=== PATIENT | female | born 1955 | race Caucasian/White ===

== ENCOUNTER 2017-01-16 08:54 | Inpatient (IN) | payer OTHER ==
[~2017-01-16] VITALS: Ht 165.1 cm; Wt 89.7 kg
[2017-01-16 09:23] LABS: EOSINOPHIL (%) 0.5 % (0-5); EOSINOPHIL COUNT 0.1 K/uL (0-0.3); HEMATOCRIT 38.5 % (36.0-46.0); IMMATURE GRANULOCYTE (%) 0.3 % (0.0-0.7); IMMATURE GRANULOCYTE COUNT 0.3 K/uL; LYMPHOCYTE COUNT 1.9 K/uL (1.0-2.8); MCH 33.7 PG (29.0-34.0); MCHC 35.1 G/DL (30.0-36.0); MEAN PLAT.VOLUME 8.9 uM^3 (9.5-12.4); MONOCYTE (%) 7.4 % (3-12); MONOCYTE COUNT 0.7 K/uL (0-0.8); NEUTROPHIL COUNT 6.7 K/uL (1.8-6.4); PLATELET COUNT 271 K/uL (156-360); RBC DIS.WIDTH-CV 11.8 % (11.8-14.6); RBC DIS.WIDTH-SD 40.1 % (39-53); RED BLOOD COUNT 4.01 M/uL (3.80-5.20); WHITE BLOOD COUNT 9.4 K/uL (4.1-10.2)
[2017-01-16 09:35] LABS: CHLORIDE 95 mEq/L (99-109); D-DIMER ELISA 0.97 mg/L FEU (< 0.57); INTER. NORMALIZED RATIO 1.2; POTASSIUM 5.3 mEq/L (3.7-5.4); PROTHROMBIN TIME 12.2 (9.2-11.2); PTT 29.9 (25-32); SODIUM 126 mEq/L (136-147)
[2017-01-16 09:37] LABS: GLUCOSE 116 mg/dL (70-99)
[2017-01-16 09:38] LABS: ANION GAP 11 MEQ/L (2-14)
[2017-01-16 09:41] LABS: GFR ESTIMATE (CALCULATED) > 59 mL/min/; UREA NITROGEN (BUN) 9 mg/dL (9-23)
[2017-01-16 09:44] LABS: TROP-I INTERPRETATION NEGATIVE; TROPONIN-I < 0.01 ng/mL (0.0-0.30)
[2017-01-16 12:08] LABS: ADD MIUA? NO; BILIRUBIN NEGATIVE; BLOOD NEGATIVE; COLOR YELLOW ((YELLOW)); GLUCOSE (STRIP) NEGATIVE; KETONES NEGATIVE; LEUKOCYTES NEGATIVE; NITRITE NEGATIVE; PROTEIN (STRIP) 30; SPECIFIC GRAVITY 1.019 (1.000-1.030); UCUL ADDED? NO; UROBILINOGEN 0.2 MG/DL (0.2-1.0)
[2017-01-16] MEDS ORDERED: ALPRAZOLAM0.5 MG PO (13:54)
[2017-01-16] MEDS ORDERED: METAXALONE800 MG PO (13:54)
[2017-01-16] MEDS ORDERED: LABETALOL HCL200 MG PO (13:55)
[2017-01-16] MEDS ORDERED: LISINOPRIL20 MG PO (13:55)
[2017-01-16] MEDS ORDERED: LEXAPRO10 MG PO (13:55)
[2017-01-16] MEDS ORDERED: EXCEDRIN MIGRA1 EAC3 PO (13:57)
[2017-01-16 18:03] VITALS: BP 151/76
[2017-01-16 20:08] VITALS: BP 180/94
[2017-01-16 23:14] VITALS: BP 160/88
[2017-01-17] VITALS (9 sets, daily range): BP systolic 145–184; BP diastolic 78–92
[2017-01-17 06:43] LABS: ANION GAP 8 MEQ/L (2-14); CHLORIDE 96 MEQ/L (99-109); GFR ESTIMATE (CALCULATED) > 59 mL/min/; GLUCOSE 97 mg/dL (70-99); SAMPLE HEMOLYSIS CHECK 0; SAMPLE ICTERIC CHECK 0; SAMPLE LIPEMIA CHECK 0; SODIUM 129 MEQ/L (136-147); UREA NITROGEN (BUN) 9 mg/dL (9-23)
[2017-01-17 06:47] LABS: POTASSIUM 4.2 MEQ/L (3.7-5.4)
[2017-01-17 07:28] LABS: INTERNAL CONTROL VALID? YES
[2017-01-18] VITALS (8 sets, daily range): BP systolic 150–209; BP diastolic 78–102
[2017-01-18 08:10] LABS: EOSINOPHIL (%) 0.9 % (0-5); EOSINOPHIL COUNT 0.1 K/uL (0-0.3); HEMATOCRIT 41.6 % (36.0-46.0); LYMPHOCYTE COUNT 2.5 K/uL (1.0-2.8); MCH 32.5 PG (29.0-34.0); MCHC 33.9 G/DL (30.0-36.0); MCV 95.9 FL (83-99); MEAN PLAT.VOLUME 9.3 uM^3 (9.5-12.4); MONOCYTE (%) 12.5 % (3-12); MONOCYTE COUNT 0.7 K/uL (0-0.8); NEUTROPHIL (%) 43.9 % (45-76); NEUTROPHIL COUNT 2.6 K/uL (1.8-6.4); PLATELET COUNT 212 K/uL (156-360); RBC DIS.WIDTH-SD 41.9 % (39-53); RED BLOOD COUNT 4.34 M/uL (3.80-5.20); WHITE BLOOD COUNT 5.9 K/uL (4.1-10.2)
[2017-01-18 08:35] LABS: ALKALINE PHOSPHATASE 68 IU/L (3-129); ANION GAP 13 MEQ/L (2-14); CHLORIDE 93 MEQ/L (99-109); GFR ESTIMATE (CALCULATED) > 59 mL/min/; GLUCOSE 111 mg/dL (70-99); POTASSIUM 4.1 MEQ/L (3.7-5.4); SAMPLE HEMOLYSIS CHECK 0; SAMPLE ICTERIC CHECK 0; SAMPLE LIPEMIA CHECK 0; SODIUM 128 MEQ/L (136-147); TOTAL BILIRUBIN 0.8 MG/DL (0.0-1.0); UREA NITROGEN (BUN) 7 mg/dL (9-23)
[2017-01-19 03:36] VITALS: BP 160/100
[2017-01-19 08:28] LABS: EOSINOPHIL (%) 0.9 % (0-5); EOSINOPHIL COUNT 0.1 K/uL (0-0.3); HEMATOCRIT 41.6 % (36.0-46.0); IMMATURE GRANULOCYTE (%) 0.2 % (0.0-0.7); LYMPHOCYTE COUNT 2.3 K/uL (1.0-2.8); MCH 32.8 PG (29.0-34.0); MCHC 34.1 G/DL (30.0-36.0); MCV 96.1 FL (83-99); MEAN PLAT.VOLUME 9.1 uM^3 (9.5-12.4); MONOCYTE (%) 11.3 % (3-12); MONOCYTE COUNT 0.7 K/uL (0-0.8); NEUTROPHIL (%) 52.1 % (45-76); NEUTROPHIL COUNT 3.4 K/uL (1.8-6.4); PLATELET COUNT 222 K/uL (156-360); RBC DIS.WIDTH-SD 42.1 % (39-53); RED BLOOD COUNT 4.33 M/uL (3.80-5.20); WHITE BLOOD COUNT 6.5 K/uL (4.1-10.2)
[2017-01-19 08:50] LABS: ANION GAP 11 MEQ/L (2-14); CHLORIDE 91 MEQ/L (99-109); GFR ESTIMATE (CALCULATED) > 59 mL/min/; GLUCOSE 95 mg/dL (70-99); POTASSIUM 3.7 MEQ/L (3.7-5.4); SAMPLE HEMOLYSIS CHECK 0; SAMPLE ICTERIC CHECK 0; SAMPLE LIPEMIA CHECK 0; SODIUM 129 MEQ/L (136-147); UREA NITROGEN (BUN) 9 mg/dL (9-23)
[2017-01-19 10:27] VITALS: BP 177/80
[2017-01-19] MEDS ORDERED: AMLODIPINE BESY10 MG PO (11:01)
[2017-01-19] MEDS ORDERED: LEVOFLOXACIN750 MG PO (11:01)
[2017-01-19] MEDS ORDERED: LISINOPRIL40 MG PO (11:01)
[2017-01-19] MEDS ORDERED: TRAMADOL HCL50 MG PO (11:01)
[2017-01-19 11:54] VITALS: BP 142/78
[2017-01-19 12:23] VITALS: BP 151/91
[2017-01-19 16:04] VITALS: BP 138/88
== END 2017-01-19 18:17 | disposition home or self-care (01) | DRG 194 ==
LOC: EME 08:54 → 2EAST 13:20 → EDOF 13:20 → 4SOUTH 13:20 → 2EAST 13:20 → EDOF 13:51 → 4SOUTH 14:21 → 2EAST 01-17 18:07
PROVIDERS: Emergency Medicine; Hospitalist; Nurse Practitioner Adult Health; Physician Assistant Medical
DX: J18.9 Pneumonia, unspecified organism (principal); E87.1 Hypo-osmolality and hyponatremia; I10 Essential (primary) hypertension; E66.9 Obesity, unspecified; Z68.32 Body mass index [BMI] 32.0-32.9, adult; F41.9 Anxiety disorder, unspecified; M54.9 Dorsalgia, unspecified; M54.2 Cervicalgia; M25.511 Pain in right shoulder; M25.512 Pain in left shoulder; E86.0 Dehydration; Z63.4 Disappearance and death of family member
CPT/HCPCS: 71010; 71020; 71275; 72040; 80048; 80053; 81003; 83880; 83930; 83935; 84295; 84300; 84443; 84484; 85025; 85379; 85610; 85730; 87449; 93005; 99281; 99285; J0456; J0696; J2405; J7030; J7050

== ENCOUNTER 2017-12-18 09:45 | Observation (INO) | payer OTHER ==
[~2017-12-18 09:45] MED LIST: ALPRAZOLAM0.5 MG PO; AMLODIPINE BESY10 MG PO; EXCEDRIN MIGRA1 EAC3 PO; LABETALOL HCL200 MG PO; LEVOFLOXACIN750 MG PO; LEXAPRO10 MG PO; LISINOPRIL20 MG PO; LISINOPRIL40 MG PO; METAXALONE800 MG PO; TRAMADOL HCL50 MG PO
[2017-12-18] MEDS ORDERED: LOPRESSOR50 MG PO (10:48)
[2017-12-18] MEDS ORDERED: ZESTRIL20 MG PO (10:49)
[2017-12-18] MEDS ORDERED: SERTRALINE HCL50 MG PO (10:49)
[2017-12-18] MEDS ORDERED: ASPIR 8181 M1 PO (10:50)
[2017-12-18 19:30] VITALS: BP 139/83
[2017-12-18 20:35] VITALS: BP 169/99
[2017-12-18 23:47] VITALS: BP 158/90
[2017-12-19 04:23] VITALS: BP 164/95
[2017-12-19 05:25] LABS: BASOPHIL (%) 0.7 % (0-1); EOSINOPHIL (%) 2.7 % (0-5); EOSINOPHIL COUNT 0.1 K/uL (0-0.3); LYMPHOCYTE (%) 27.9 % (15-42); LYMPHOCYTE COUNT 0.8 K/uL (1.0-2.8); MCH 31.5 PG (29.0-34.0); MCHC 32.8 G/DL (30.0-36.0); MONOCYTE (%) 13.4 % (3-12); MONOCYTE COUNT 0.4 K/uL (0-0.8); NEUTROPHIL (%) 55.3 % (45-76); NEUTROPHIL COUNT 1.7 K/uL (1.8-6.4); PLATELET COUNT 91 K/uL (156-360); RBC DIS.WIDTH-CV 13.2 % (11.8-14.6); RBC DIS.WIDTH-SD 46.5 % (39-53); RED BLOOD COUNT 3.75 M/uL (3.80-5.20)
[2017-12-19 05:47] LABS: HEMOGLOBIN 11.8 G/DL (11.9-15.5)
[2017-12-19 05:52] LABS: CHLORIDE 103 MEQ/L (99-109); CREATININE 0.7 MG/DL (0.6-1.3); GFR ESTIMATE (CALCULATED) > 59 mL/min/; GLUCOSE 118 mg/dL (70-99); POTASSIUM 4.2 MEQ/L (3.7-5.4); SODIUM 135 MEQ/L (136-147); UREA NITROGEN (BUN) 13 mg/dL (9-23)
[2017-12-19 08:15] VITALS: BP 187/110
[2017-12-19 09:29] VITALS: BP 160/98
[2017-12-19] MEDS ORDERED: CLOPIDOGREL75 MG PO (09:36)
[2017-12-19] MEDS ORDERED: NITROSTAT0.4 MG SL (09:36)
[2017-12-19 10:45] VITALS: BP 160/98
[2017-12-19 11:36] VITALS: BP 158/100
[2017-12-19] MEDS ORDERED: LOPRESSOR100 M1 PO (11:54)
== END 2017-12-19 13:53 | disposition home or self-care (01) ==
LOC: CATH 09:45 → ENRESERV 13:41 → 2SOUTH 13:58 → 4EAST 13:58 → 2SOUTH 13:58 → ENRESERV 17:06 → 4EAST 19:50 → ENPENDDIS 12-19 → 4EAST 12-19 13:53
PROVIDERS: Internal Medicine Cardiovascular Disease
DX: I25.10 Atherosclerotic heart disease of native coronary artery without angina pectoris (principal); I25.2 Old myocardial infarction; I10 Essential (primary) hypertension; E78.5 Hyperlipidemia, unspecified; F10.20 Alcohol dependence, uncomplicated; K92.1 Melena; Z79.82 Long term (current) use of aspirin; Z79.02 Long term (current) use of antithrombotics/antiplatelets
CPT/HCPCS: 80048; 85025; 85347; 93005; C1725; C1769; C1874; C1887; G0378; J0583; J1200; J1644; J2250; J3010; J7050